=== PATIENT | male | born 1985 | race Caucasian/White ===

== ENCOUNTER 2018-09-10 20:17 | Emergency (ER) | payer BC, OTHER ==
[2018-09-10] MEDS ORDERED: PROPARACAINE 0.5% OPHTH DROPS 15 ML BTL RIGHT EYE STA (22:38)
[2018-09-10] MEDS ORDERED: ACET/COD 300 MG/30 MG STARTER PACK 6 TAB BTL PO STA (23:09)
--- NOTE | 2018-09-10 23:10 | ED ---
Eye Problem HPI - General Chief complaint: Eye Problems Stated complaint: R eye Pain Time Seen by Provider: 09/10/18 21:55 Source: patient Mode of arrival: ambulatory Limitations: no limitations - History of Present Illness Initial comments: 33-year-old male with no past medical history presenting for right eye discomfort. Patient denies contact lens use, or glasses. Patient states that he thinks he had a foreign body in his right eye. He states he has had one in the past and this feels identical and symptoms. Patient states he has mild discomfort especially with blinking. Patient denies any photophobia, headache, nausea, vomiting. 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 Patient denies any discharge, fever, chills, vision loss, flashes of light, floaters, blunt eye trauma, diplopia. Remainder of ROS negative, Patient denies any recent shortness of breath, chest pain, back pain, abdominal pain, numbness or tingling, dysuria or hematuria, constipation or diarrhea, or any other complaints. Upon arrival patient does not appear in acute distress, vital signs within normal limits. Patient tetanus up-to-date last 5 years. - Related Data Previous Rx's Medication Instructions Recorded Erythromycin Ophth Oint [Romycin 1 applic RIGHT EYE QID 3 Days #1 09/10/18 Ophth Oint] tube Allergies Allergy/AdvReac Type Severity Reaction Status Date / Time No Known Allergies Allergy Verified 09/10/18 21:05 Review of Systems ROS Statement: Those systems with pertinent positive or pertinent negative responses have been documented in the HPI. ROS Other: All systems not noted in ROS Statement are negative. Past Medical History Past Medical History: No Reported History History of Any Multi-Drug Resistant Organisms: None Reported Past Surgical History: No Surgical Hx Reported Past Psychological History: No Psychological Hx Reported Smoking Status: Current every day smoker Past Alcohol Use History: Occasional Past Drug Use History: None Reported General Exam - General Exam Comments Initial Comments: General: The patient is awake and alert, in no distress, and does not appear acutely ill. Eye: VA 20/25 OD, OD and OU. +3 mm pupils are equal, round and reactive to light, extra-ocular movements are intact. Visual kendrick intact to confrontation. No nystagmus. There is normal conjunctiva bilaterally. No signs of icterus. IOP OD 10 OS 11. Slit lamp examination revealed small appearing metal foreign body at the area clock position, and cornea over area of iris. Fluorescein exam revealed uptake at this area, small rust ring. Negative Julia sign. Ears, nose, mouth and throat: There are moist mucous membranes and no oral lesions. Cardiovascular: There is a regular rate and rhythm. No murmur, rub or gallop is appreciated. Respiratory: Lungs are clear to auscultation, respirations are non-labored, breath sounds are equal. No wheezes, stridor, rales, or rhonchi. Musculoskeletal: Normal ROM, no tenderness. Strength 5/5. Sensation intact. Pulses equal bilaterally 2+. Neurological: A&O x 3. CN II-XII intact, There are no obvious motor or sensory deficits. Coordination appears grossly intact. Speech is normal. Skin: Skin is warm and dry and no rashes or lesions are noted. Psychiatric: Cooperative, appropriate mood & affect, normal judgment. Limitations: no limitations Course Vital Signs 09/10/18 09/10/18 21:02 23:19 Temperature 98.6 F 97.6 F Pulse Rate 85 69 Respiratory 16 18 Rate Blood Pressure 150/75 125/69 O2 Sat by Pulse 97 98 Oximetry Medical Decision Making - Medical Decision Making 33-year-old male with complaints of right eye foreign body. Denies contact lens use .VA 20/25 OD, OS. IOP WNL. VF intact. Fluorescein exam revealed foreign body, negative Julia sign. Foreign body was removed by attending provider Dr. Sommers using 18-gauge needle. I was numbed with proparacaine prior to procedure. Patient be discharged with starter pack of tylenol #3 for pain management, risk involved use of Tylenol 3 was discussed at length with patient prior to dispense including risks of addicitoin, overdose and . In addition patient be given erythromycin for antibiotic infection prophylaxis. Patient given up while to follow-up in the next 1-2 days. Patient is agreeable plan and discharged. Case discussed in detail Dr. Sommers who agreed to impression plan patient discharged appearing well. Return parameters were discussed at length the patient who verbalized understanding. Disposition Clinical Impression: Foreign body of right eye Disposition: HOME SELF-CARE Condition: Good Instructions (If sedation given, give patient instructions): Eye Foreign Body ( ED) Additional Instructions: Please use medication as discussed, driving, drinking alcohol ,operating machinery, using benzodiazepines or other opiates while taking Tylenol No. 3 as discussed. Please follow-up in the next 1-2 days with ophthalmology, Dr. Donohue. Please return to emergency room if the symptoms increase or worsen or for any other concerns. Prescriptions: Erythromycin Ophth Oint [Romycin Ophth Oint] 1 applic RIGHT EYE QID 3 Days #1 tube Is patient prescribed a controlled substance at d/c from ED?: No Referrals: Rafy Mcelroy DO [Primary Care Provider] - 1-2 days Andrew Donohue MD [STAFF PHYSICIAN] - 1-2 days Time of Disposition: 23:07
[2018-09-10 23:20] VITALS: BP 125/69; PULSE 69; RESP 18; TEMP 97.6
== END 2018-09-10 23:19 | disposition home or self-care (01) ==
LOC: EC 20:17
DX: T15.01XA Foreign body in cornea, right eye, initial encounter (principal); F17.200 Nicotine dependence, unspecified, uncomplicated
CPT/HCPCS: 65220; 99283

== ENCOUNTER 2020-06-28 11:12 | Emergency (ER) | payer BC, OTHER ==
[2020-06-28 11:36] VITALS: BP 111/66; PULSE 80; RESP 18; TEMP 98.1
--- NOTE | 2020-06-28 12:07 | ED ---
Skin/Abscess/FB HPI - General Chief complaint: Skin/Abscess/Foreign Body Stated complaint: rash Time Seen by Provider: 06/28/20 11:51 Source: patient Mode of arrival: ambulatory Limitations: no limitations - History of Present Illness Initial comments: this is a 34-year-old male with a past medical history who presents emergency department for a rash. The patient states that it started 2 days ago. He noticed it first on his right wrist and then also noticed some areas on his neck and also his left lateral chest. The patient states that he was out in the [place] helping a friend with some work. He states he does not know if he came in contact with poison aminah and he noticed some itching first 2 days ago and then the rash appeared. He denies any pain. He states he also has a little bit of swelling around the right eye however no pain or itching currently. Patient denies any new medications. He denies any known ALLERGIES. The patient has not had poison aminah in the past. The patient is tried using hydrocortisone cream with some relief. Has not tried any other remedies at home. He came to the emergency department to confirm that this was poison aminah. - Related Data Previous Rx's Medication Instructions Recorded Erythromycin Ophth Oint [Romycin 1 applic RIGHT EYE QID 3 Days #1 09/10/18 Ophth Oint] tube Menthol-Zinc Oxide Oint 1 applic TOPICAL BID PRN #30 gm 06/28/20 [Calmoseptine Oint] Triamcinolone 0.025% Cream 1 applic TOPICAL TID #30 gm 06/28/20 [Kenalog 0.025% Cream] Allergies Allergy/AdvReac Type Severity Reaction Status Date / Time No Known Allergies Allergy Verified 06/28/20 11:37 Review of Systems ROS Statement: Those systems with pertinent positive or pertinent negative responses have been documented in the HPI. ROS Other: All systems not noted in ROS Statement are negative. Constitutional: Denies: fever, chills Respiratory: Denies: cough, dyspnea Cardiovascular: Denies: chest pain, palpitations Gastrointestinal: Denies: abdominal pain, nausea, vomiting Skin: Reports: rash, pruritus Past Medical History Past Medical History: No Reported History History of Any Multi-Drug Resistant Organisms: None Reported Past Surgical History: No Surgical Hx Reported Past Psychological History: No Psychological Hx Reported Smoking Status: Current every day smoker Past Alcohol Use History: Occasional Past Drug Use History: None Reported General Exam - General Exam Comments Initial Comments: General: The patient is awake and alert, in no distress, and does not appear acutely ill. Skin: Skin is warm and dry, there are linear fascicular lesions to the right wrist with underlying erythema. There is also a few lesions with a similar appearance to the left side of the anterior neck and also the left chest wall. No other lesions noted. Eye: Pupils are equal, round and reactive to light, extra-ocular movements are intact; there is normal conjunctiva bilaterally. there is some mild swelling around the right eye. No conjunctival injection. No evidence for foreign body. No foreign body sensation. Pupils are 4 mm and reactive bilaterally Ears, nose, mouth and throat: There are moist mucous membranes and no oral lesions. Neck: The neck is supple, there is no tenderness or JVD. rash as noted above Cardiovascular: There is a regular rate and rhythm. No murmur, rub or gallop is appreciated. Respiratory: Lungs are clear to auscultation, respirations are non-labored, breath sounds are equal. Gastrointestinal: Soft, non-distended, non-tender abdomen without masses or organomegaly noted. There is no rebound or guarding present. Bowel sounds are unremarkable. Musculoskeletal: Normal ROM, no tenderness, There is no pedal edema. There is no calf tenderness or swelling. No cords were appreciated. Psychiatric: Cooperative, appropriate mood & affect, normal judgment. Limitations: no limitations Course Vital Signs 06/28/20 11:34 Temperature 98.1 F Pulse Rate 80 Respiratory 18 Rate Blood Pressure 111/66 O2 Sat by Pulse 99 Oximetry Medical Decision Making - Medical Decision Making visit 34-year-old male who presents emergency department for a rash. Patient was nontoxic-appearing. The patient had stable vital signs. Exam did favor what appeared to be contact dermatitis likely from poison aminah from being in the [place]. The patient will be prescribed Kenalog cream and, Calmoseptine ointment. He was told to monitor the lesions. There is any worsening or changing should return emergency Department for reevaluation. Otherwise supportive care and to the lesions do heel. Disposition Clinical Impression: Contact dermatitis and eczema due to plant Disposition: HOME SELF-CARE Condition: Stable Instructions (If sedation given, give patient instructions): Poison Aminah (ED) Prescriptions: Menthol-Zinc Oxide Oint [Calmoseptine Oint] 1 applic TOPICAL BID PRN #30 gm PRN Reason: Itching Triamcinolone 0.025% Cream [Kenalog 0.025% Cream] 1 applic TOPICAL TID #30 gm Is patient prescribed a controlled substance at d/c from ED?: No Referrals: Rafy Mcelroy DO [Primary Care Provider] - 1-2 days
== END 2020-06-28 12:20 | disposition home or self-care (01) ==
LOC: EC 11:12
DX: L25.5 Unspecified contact dermatitis due to plants, except food (principal); F17.200 Nicotine dependence, unspecified, uncomplicated
CPT/HCPCS: 99282